=== PATIENT | female | born 2005 ===

== ENCOUNTER 2023-12-01 11:09 | Day surgery (SDC) | payer SELFPAY ==
[~2023-12-01] VITALS: Ht 162.6 cm; Wt 59.1 kg
[2023-12-01] VITALS (8 sets, daily range): BP systolic 105–128; BP diastolic 46–68; PULSE 50–58; TEMP 98.4–99
--- NOTE | 2023-12-01 12:10 | NUR ---
PATIENT ARRIVED TO FLOOR AT 1100AM FROM [facility] WITH LOWER RT ABD PAIN. PATIENT STATES PAIN ONLY WHEN ABD IS PRESSED ON. NO PAINMEDS GIVEN AT THIS TIME. ADMISSION , ASSESSMENT AND MED REC COMPLETED. PATIENT HAS NO NEEDS AT THIS TIME. CALL LIGHT IN REACH
[2023-12-01] MEDS ORDERED: LR 1,000 ML IV SCH (12:15)
[2023-12-01] MEDS ORDERED: Ondansetron 4 MG/2 ML VIAL IV PRN ×3 (12:15→16:45)
[2023-12-01] MEDS ORDERED: HYDROmorphone 0.5 MG/0.5 ML SYRINGE IV PRN (12:15)
[2023-12-01] MEDS ORDERED: SINGULAIR 110 MG/TAB (12:15)
[2023-12-01] MEDS ORDERED: VYVANSE30 MG PO (12:15)
[2023-12-01] MEDS ORDERED: NORCO 325 MG-51 TAB PO (13:12)
[2023-12-01] MEDS ORDERED: Ondansetron 4 MG/2 ML VIAL ONE (13:49)
[2023-12-01] MEDS ORDERED: Rocuronium 50 MG/5 ML Multi-Dose VIAL ONE (13:49)
[2023-12-01] MEDS ORDERED: fentaNYL 50 MCG/ML 5 ML VIAL ONE (13:49)
[2023-12-01] MEDS ORDERED: Lidocaine PF 2% (20 MG/ML) 5 ML VIAL ONE (13:49)
[2023-12-01] MEDS ORDERED: dexAMETHasone 10 MG/ML VIAL ONE (13:49)
[2023-12-01] MEDS ORDERED: Ibuprofen 600 MG TAB PO PRN (16:30)
[2023-12-01] MEDS ORDERED: HYDROmorphone 1 MG/1 ML SYRINGE [PACU/SDC ONLY] IV PRN (16:45)
[2023-12-01] MEDS ORDERED: Meperidine 50 MG/ML 1 ML VIAL IV PRN (16:45)
[2023-12-01] MEDS ORDERED: fentaNYL 50 MCG/ML 1 ML SYRINGE/VIAL [PACU/SDC ONLY] IV PRN (16:45)
[2023-12-01] MEDS ORDERED: droPERidol 2.5 MG/ML 2 ML VIAL IV PRN (16:45)
[2023-12-01] MEDS ORDERED: Ketorolac 30 MG/ML VIAL ONE (17:08)
--- NOTE | 2023-12-01 18:18 | NUR ---
PATIENT ARRIVED FROM PACU AFTER ROBOTOC APPY PROCEDURE AT 1800. PATIENT A&O X4 STATES HAVING SOME PAIN IN LOW ABD NOT SURE IF ITS GAS PAIN OR MENTRUAL CRAMPS. PAIN RATING 3/10 PATIENT STATES SHE FEELS LIKE THE PAIN IS WORSE WHEN LAYING STILL REQUESTED TO GET UP AND TRY STANDING OR WALKING A LITTLE TO SEE IF THAT HELPS. THIS NURSE ASSISTED PATIENT WITH GETTING UP OUT OF BED AND WALKING IN PLACE AND THEN DOWN THE CHAMBERS. PATIENT STATES IT FEEL MUCH BETTER MOVING AROUND. ADVISED PATIENT TO TAKE IT EASY BUT SHE MAY WALK W/ SBA IF THAT IS WHAT FEELS BETTER. LR INFUSING AT 100ML/HR TO RT AC. VSS. PATIENT HAS NO OTHER REQUEST AT THIS TIME. SPOKE TO PATIENT ABOUT SHE WILL NEED TO URINATE AND EAT SOMETHING BEFORE DISCHARGING, PATIENT AND PATIENTS MOM AGREED. CALL LIGHT IN REACH
--- NOTE | 2023-12-01 19:29 | NUR ---
IV TO RT AC REMOVED FOR DISCHARGE. ALL INTACKED PATIENT TOLERATED WELL.
--- NOTE | 2023-12-01 20:00 | NUR ---
PATIENT IS A&O. VSS. REPORT MILD DISCOMFORT IN ABD POSTOP. ABD LAP SITES ARE CD&I WITH BANDAIDS. NO C/O N/V. PATIENT TOLERATING GENERAL DIET. DAY SHIFT NURSE DC'D IV AND PATIENT DRESSED. HEAD TO TOE ASSESSMENT COMPLETE. PATIENT NOW WALKING IN HALLS WITH HER MOM. PLAN IS TO DISCHARGE HOME TONIGHT, SEE ORDERS.
--- NOTE | 2023-12-01 20:30 | NUR ---
GAVE DISCHARGE INSTRUCTIONS, E-SCRIPT SENT, AND DISCUSSED F/U APT. ANSWERED QUESTIONS/CONCERNS. PATIENT IS DRESSED, PACKED AND AMBULATORY TO PERSONAL VEHICLE WITH MOM.
== END 2023-12-01 21:00 | disposition home or self-care (01) ==
LOC: SDCO 11:09 → SURG 11:09 → EDSTATUS 16:00 → SDCO 21:00 → SURG 21:00
DX: K35.80 Unspecified acute appendicitis (principal); D72.829 Elevated white blood cell count, unspecified
CPT/HCPCS: OP; G0378; G0379; J1100; J1171; J1885; J2405; J2543; J2704; J3010; J7120